=== PATIENT | male | born 1980 | race Caucasian/White ===

== ENCOUNTER 2016-07-03 15:10 | Emergency (ER) | payer BC, OTHER ==
[2016-07-03 15:26] VITALS: BP 162/104
--- NOTE | 2016-07-03 15:35 | ERNOTE ---
Lower Extremity HPI - Narrative Date of Service: 07/03/16 - General Lower Extremities Pain: knee: left Time Seen by Provider: 07/03/16 15:13 Source: patient Exam Limitations: no limitations - Immun/Allergies/Home Medications Allergies/Adverse Reactions: Allergies Allergy/AdvReac Type Severity Reaction Status Date / Time ampicillin Allergy Severe Hives Verified 07/03/16 15:27 Home Medications: HOME MEDICATIONS Fexofenadine/Pseudoephedrine [Hilda-D 24 Hour Tablet] 1 each PO DAILY PRN [Last Taken 10/20/12] - History of Present Illness Narrative: Pt. comes in with C/o L knee pain after he fell in knee deep hole while at work yesterday. Pt. states that the pain is mild and dull except when ambulating then the pain is sharp and the more he ambulates the worse the pain is at rest. Pt. states taht he heard popping when he first fell. Pt. denies any numbness or tingling, alleviaitng factors depite using 800mg for Ibuprofen twice today. Review of Systems - Review of Systems Constitutional: Present: no symptoms reported. Absent: fever, chills, weakness , fatigue, malaise EYE: Present: no symptoms reported ENT: Present: no symptoms reported Respiratory: Present: no symptoms reported. Absent: shortness of breath, cough , wheezing Cardiology: Present: no symptoms reported. Absent: chest pain, palpitations, edema Gastrointestinal/Abdominal: Present: no symptoms reported. Absent: nausea, vomiting, diarrhea, abdominal pain Genitourinary: Present: no symptoms reported. Absent: frequency, decreased urinary output Musculoskeletal: Present: joint pain - L knee. Absent: back pain, neck pain Skin: Present: other - abrasion L lateral knee. Absent: change in color Neurological: Present: no symptoms reported. Absent: headache, dizziness/light- headedness, numbness, tingling All Other Systems: All systems neg except as marked - Patient's Past Medical History Patient History - Medical: No pertinent hx Physical Exam - Physical Exam General Appearance: Present: wd/wn, alert, no apparent distress Eye Exam: Normal inspection: bilateral, PERRL: bilateral, EOMI: bilateral Ears, Nose, Throat: Present: normal ENT inspection, normal pharynx Neck: Present: normal inspection, nontender. Absent: lymphadenopathy (R), lymphadenopathy (L) Respiratory: Present: no respiratory distress, normal breath sounds, no accessory muscle use, chest nontender, lungs clear Cardiovascular/Chest: Present: regular rate, rhythm, no murmur, normal peripheral pulses Gastrointestinal/Abdominal: Present: normal bowel sounds, nontender, nondistended, soft, no organomegaly Back Exam: Present: normal inspection, normal range of motion, no CVA tenderness , no vertebral tenderness Extremity Exam: Present: no edema, decreased range of motion, other - medial tenderness over MCL Neurological Exam: Present: alert, oriented, normal mood/affect, no motor/ sensory deficits, 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 Absent: pallor, skin rash ED Progress - Vital Signs Patient's Vital Signs:: I have reviewed the patient's vital signs. - X-Ray X-Ray #1 X-Ray: knee Interpretation: Reviewed by me X-ray Comments: no acute Departure Clinical Impression: Knee strain Qualifiers: Encounter type: initial encounter Laterality: left Qualified Code(s): S86.912A - Strain of unspecified muscle(s) and tendon(s) at lower leg level, left leg, initial encounter - Departure Disposition: Home self-care Condition: Good Instructions: Combined Knee Ligament Sprain Additional Instructions: Please follow up with orthopedics in 1 week if not improved. [facility]. May take 800mg Ibuprofen every eight hours as needed for pain. Referrals: Desiree Naidu DO [Primary Care Provider] -
--- OUTSIDE RECORDS SUMMARY | 2016-07-03 16:15 | XMS REPORT | Continuity of Care Document ---
:1980 Author Organization [facility] ([facility]) Address [address] [place] [address] Phone [phone] Care Team Providers Name Role Phone Unavailable Primary Care Provider Unavailable Source Comments This disclosure is being made pursuant to the Care Everywhere program, applicable federal and state laws, and may not contain all informaitonavailable regarding this patient.[facility] ([facility]) Active Allergies and Adverse Reactions Not on File Current Medications Not on file Active Problems Not on file Social History Tobacco Use Types Packs/Day Years Used Date Never Assessed Plan of Care Health Maintenance Due Date Last Done Comments Hepatitis B Vaccine (1 of 3 - Primary Series) 1980 Tdap Vaccine 06/09/1991 Lipid Disorder Screening 1998 MMR Vaccine 1998 Td Vaccine 1998 Varicella Vaccine (1 of 2 - Adult - No Evidence of 1998 Immunity) Influenza Vaccine: Seasonal (#1) 10/02/2015 Results from Last 3 Months Not on file
== END 2016-07-03 16:19 | disposition home or self-care (01) ==
LOC: ER 15:10
PROC: 2W3MX1Z Immobilization of Left Lower Extremity using Splint (ICD-10-PCS; principal; 2016-07-03)
DX: S86.912A Strain of unspecified muscle(s) and tendon(s) at lower leg level, left leg, initial encounter (principal); W17.2XXA Fall into hole, initial encounter; Y93.9 Activity, unspecified; Y92.9 Unspecified place or not applicable; Y99.0 Civilian activity done for income or pay